=== PATIENT | male | born 1990 ===

== ENCOUNTER 2016-08-23 11:39 | Emergency (ER) | payer SELFPAY ==
--- NOTE | 2016-08-23 13:46 | ED NURSING NOTES ---
Clinical Report - Nurses [facility] [address] [place] [address] 08/23/2016 11:46 Patient: MEGHAN WORTHY TRIAGE Triage time 1155. Acuity: LEVEL 4. Chief Complaint: (tailbone pain). Alert. No acute distress. --12:04 Kelsy Sewell 12:01 08/23/16. BP: 137/81. HR: 97. RR: 16. O2 saturation: 99%. Temp: 97.7 F. Pain level now 5/10. --12:04 Kelsy Sewell. Weight: 90.7 kg. Height/Length: 69 inches. BMI: 29.5. --12:00 Kelsy Sewell. Medications None. --12:02 Kelsy Sewell PriLOSEC Oral. --12:02 Kelsy Sewell. Allergies No Known Drug Allergy. --12:02 Kelsy Sewell. History Arrived by private vehicle. Historian: patient. Accompanied by family. Onset. (2 weeks ago). He has had tingling. History of recent trauma- fall (2 weeks ago). 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 SOCIAL HX: Light tobacco smoker (cigarette)- less than 1/2 a pack per day. --12:04 Kelsy Sewell. PROBLEMS: Gastroesophageal Reflux Disease. --12:02 Kelsy Sewell. Interventions ID band on patient. To treatment room. --12:04 Kelsy Sewell. PHYSICAL ASSESSMENT Ambulatory to room. GENERAL / NEURO / PSYCH: Alert. Oriented X 4. Appears in no acute distress. RESPIRATORY: Respirations not labored. Chest nontender. Breath sounds within normal limits. CVS: Normal heart rate and rhythm. Capillary refill less than 2 seconds. GI / : Abdomen soft and nontender. Bowel sounds within normal limits. EXTREMITIES: Sensation intact in extremities. ROM of extremities within normal limits. BACK: ( tender to tailbone). Normal inspection of the neck and back. ROM of neck and back within normal limits. --12:04 Kelsy Sewell. NURSING PROGRESS NOTES The plan of care for this patient has been created. Reassurance given. Two patient identifiers checked. Call light placed in reach. Bed placed in lowest position. Brakes of bed on. Patient ready for evaluation- chart flagged. --12:05 Kelsy Sewell 12:33 08/23/2016 Hydrocodone-APAP (Hydrocodone-Acetaminophen) PO 5/325 mg Tablets 1 tab given. Allergies verified, confirmed 5 rights and sedative warning given to the patient. --12:33 Kelsy Sewell 12:33 08/23/2016 Toradol (Ketorolac Tromethamine) IM 60 mg given. Given in the right gluteus litzy. Allergies verified and confirmed 5 rights. --12:33 Kelsy Sewell Reassessment after medication administered. He is calm and resting quietly and has had no adverse reaction. Overall patient status is the same- he states feels the same. --14:06 Kelsy Sewell. DISPOSITION / DISCHARGE Departure time: 1405. Condition at departure: unchanged and stable. No learning barriers present. Discharge instructions provided and reviewed with the patient. Reviewed medication(s). Work note given. Patient verbalized understanding. Written instructions provided in Sami. The patient was discharged by the nurse practitioner. He was discharged home and accompanied by spouse and family. He left the Emergency Department ambulatory and via private vehicle. Family member driving. --14:07 Kelsy Sewell 14:06 08/23/16. BP: 134/67. HR: 86. RR: 16. O2 saturation: 100%. Pain level now 5/10. --14:07 Kelsy Sewell. Locked/Released at 08/23/2016 14:07 by Kelsy Sewell,
--- NOTE | 2016-08-23 13:46 | ED NURSING NOTES ---
Clinical Report - Nurses [facility] [address] [place] [address] 08/23/2016 11:46 Patient: MEGHAN WORTHY TRIAGE Triage time 1155. Acuity: LEVEL 4. Chief Complaint: (tailbone pain). Alert. No acute distress. --12:04 Kelsy Sewell 12:01 08/23/16. BP: 137/81. HR: 97. RR: 16. O2 saturation: 99%. Temp: 97.7 F. Pain level now 5/10. --12:04 Kelsy Sewell. Weight: 90.7 kg. Height/Length: 69 inches. BMI: 29.5. --12:00 Kelsy Sewell. Medications None. --12:02 Kelsy Sewell PriLOSEC Oral. --12:02 Kelsy Sewell. Allergies No Known Drug Allergy. --12:02 Kelsy Sewell. History Arrived by private vehicle. Historian: patient. Accompanied by family. Onset. (2 weeks ago). He has had tingling. History of recent trauma- fall (2 weeks ago). 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 SOCIAL HX: Light tobacco smoker (cigarette)- less than 1/2 a pack per day. --12:04 Kelsy Sewell. PROBLEMS: Gastroesophageal Reflux Disease. --12:02 Kelsy Sewell. Interventions ID band on patient. To treatment room. --12:04 Kelsy Sewell. PHYSICAL ASSESSMENT Ambulatory to room. GENERAL / NEURO / PSYCH: Alert. Oriented X 4. Appears in no acute distress. RESPIRATORY: Respirations not labored. Chest nontender. Breath sounds within normal limits. CVS: Normal heart rate and rhythm. Capillary refill less than 2 seconds. GI / : Abdomen soft and nontender. Bowel sounds within normal limits. EXTREMITIES: Sensation intact in extremities. ROM of extremities within normal limits. BACK: ( tender to tailbone). Normal inspection of the neck and back. ROM of neck and back within normal limits. --12:04 Kelsy Sewell. NURSING PROGRESS NOTES The plan of care for this patient has been created. Reassurance given. Two patient identifiers checked. Call light placed in reach. Bed placed in lowest position. Brakes of bed on. Patient ready for evaluation- chart flagged. --12:05 Kelsy Sewell 12:33 08/23/2016 Hydrocodone-APAP (Hydrocodone-Acetaminophen) PO 5/325 mg Tablets 1 tab given. Allergies verified, confirmed 5 rights and sedative warning given to the patient. --12:33 Kelsy Sewell 12:33 08/23/2016 Toradol (Ketorolac Tromethamine) IM 60 mg given. Given in the right gluteus litzy. Allergies verified and confirmed 5 rights. --12:33 Kelsy Sewell Reassessment after medication administered. He is calm and resting quietly and has had no adverse reaction. Overall patient status is the same- he states feels the same. --14:06 Kelsy Sewell. DISPOSITION / DISCHARGE Departure time: 1405. Condition at departure: unchanged and stable. No learning barriers present. Discharge instructions provided and reviewed with the patient. Reviewed medication(s). Work note given. Patient verbalized understanding. Written instructions provided in Serbian. The patient was discharged by the nurse practitioner. He was discharged home and accompanied by spouse and family. He left the Emergency Department ambulatory and via private vehicle. Family member driving. --14:07 Kelsy Sewell 14:06 08/23/16. BP: 134/67. HR: 86. RR: 16. O2 saturation: 100%. Pain level now 5/10. --14:07 Kelsy Sewell. Locked/Released at 08/23/2016 14:07 by Kelsy Sewell,
--- NOTE | 2016-08-23 13:46 | ED CLINICAL REPORT ---
Clinical Report - Physicians/Mid Levels [facility] [address] [place] [address] 08/23/2016 11:46 Patient: MEGHAN WORTHY Time Seen: 1205. Arrived- By private vehicle. Historian- patient. HISTORY OF PRESENT ILLNESS Chief Complaint: tailbone pain. Modifying factors- worsened by sitting. It is described as being severe. The quality is noted to be sharp. No radiation. Onset- 2 weeks ago and it is still present and worsening. It was gradual in onset and has been constant but is not gone now. No bladder dysfunction, bowel dysfunction, sensory loss or motor loss. Additional history - rreports no fever, urinary retention, history of drug use. Patient reports no numbness, [place], weakness. Patient notes the possibility of an injury (feel). Mechanism of injury- he slipped and fell. (fell). (at work outside on ice/snow). Patient denies injury to the head or neck. No other injury. Similar symptoms previously: None. Recent medical care: Not recently seen/assessed. REVIEW OF SYSTEMS No fever or chills. All systems otherwise negative, except as recorded above. PAST HISTORY See nurses notes. SOCIAL HISTORY Never smoker. No alcohol use or drug use. Residence: [place] Is a local resident. ADDITIONAL NOTES The nursing notes have been reviewed. PHYSICAL EXAM Vital Signs: 08/23/2016 12:01 BP: 137/81. HR: 97. RR: 16. O2 saturation: 99%. Temp: 97.7 F. Blood pressure normal. Oxygen saturation normal. Appearance: Alert. No acute distress. HEENT: Normal external inspection. Eyes: Pupils equal, round and reactive to light. ENT: Ears normal. Pharynx normal. Neck: Normal inspection. Neck nontender. Painless ROM. CVS: Heart sounds normal. Pulses normal. Respiratory: No respiratory distress. Breath sounds normal. Abdomen: No visible injury. Soft and nontender. Bowel sounds normal. No mass. Back: Normal inspection. Painless ROM. (mild tenderness at the coccyx. No Bony abnormalities. Overlying skin changes. No masses. Skin is intact. No swelling.). Skin: Skin warm and dry. Normal skin color. No rash. Normal skin turgor. Extremities: Extremities exhibit normal ROM. Extremities nontender. LABS, X-RAYS, AND EKG Sacrum X-ray: No fracture and mass effect. Soft tissues normal. (2 view of the sacrum and coccyx with 1 cone-down view. No osseous maladies.). Views: AP and lateral. Technique: good. The X-rays were independently viewed by me and interpreted contemporaneously by me. Prior films were not available for comparison. PROGRESS AND PROCEDURES Course of Care: the patient is a pleasant 26-year-old male presenting for evaluation of pain into the coccyx. The patient is reports a traumatic event prior to the onset of the pain. No neurovascular compromise noted on examination. No evidence of cauda equina syndrome, or conus medullaris. Patient be managed with pain medication and radiographs of the sacrum/coccyx. Patient ports no other pain or injury at this time. Again patient is neurovascularly intact. Workup does not show any acute abnormalities. Radiograph of the sacrum did not show any acute osseous abnormalities. Patient be treated as a coccyx contusion. Patient be treated conservatively with pain medication and rest. Discussed the patient workup, diagnosis, home care, follow-up, and return precautions. All questions answered. The patient expressed understanding of these instructions and was agreeable to that. Disposition: Discharged. Condition: good. CLINICAL IMPRESSION 08/23/2016 12:01 BP: 137/81. HR: 97. RR: 16. O2 saturation: 99%. Temp: 97.7 F. Blood pressure normal. Oxygen saturation normal. Single contusion. (coccyx). No hematoma or skin abrasion. INSTRUCTIONS Warnings: GENERAL WARNINGS: Return or contact your physician immediately if your condition worsens or changes unexpectedly, if not improving as expected, or if other problems arise. SPECIFICALLY, return if you develop weakness, numbness, tingling, pain or incontinence. fever, redness, or other concerns. Your Current Medications: CONTINUE TAKING THE FOLLOWING MEDICATIONS: None*. PriLOSEC Oral. Prescription Medications: Motrin 600 mg tablets: take 1 tablet orally every 6 hours as needed for pain, stiffness or swelling. Dispense thirty (30). No refill. Substitution is permissible. (take with food) Hydrocodone/APAP 5mg / 325mg: take 1 orally every 6 hours as needed for pain. Dispense fifteen (15). No refill. Follow-up: Return to the emergency department as needed. Follow up with your doctor in three days. Reason for referral: recheck today's concerns. Summary of care provided to patient and family via paper. Screening today revealed the patient's blood pressure to be in the normal range. The patient should follow up with a primary care provider for blood pressure management. Understanding of the discharge instructions verbalized by patient and parent. (Electronically signed by Wade Cooper Dr. 08/27/2016 9:58)
--- NOTE | 2016-08-23 13:47 | ED ORDER SUMMARY ---
..... Patient: MEGHAN WORTHY OrderSheet [facility] VisitID: [id number] [address] [place] [address] 26y, M Registration Date/Time: 08/23/2016 ORDER SHEET Weight: 90.7 kg Allergies: No Known Drug Allergy GENERAL ORDERS: Sacrum and Coccyx Urgent (12:19 08/23/2016 Ryan Whalen) (Ack 12:32 NHouse ER Tech1) (13:18 NHouse ER Tech1) MEDICATION ORDERS: Hydrocodone-APAP PO 5/325 mg (NOW, HIGH ALERT MEDICATION) (12:20 08/23/2016 Ryan Whalen) (12:33 [facility] Toradol IM 60 mg (NOW) (12:20 08/23/2016 Ryan Whalen) (12:33 EBpayton) IV FLUIDS: ORDER SHEET NOTES: [Electronically signed by Kelsy Sewell (14:07 08/23/2016)] [Electronically signed by Wade Cooper Dr. (09:58 08/27/2016)] [Electronically locked/signed by Kelsy Sewell (14:07 08/23/2016)]
--- NOTE | 2016-08-23 13:47 | ED ORDER SUMMARY ---
..... Patient: MEGHAN WORTHY OrderSheet [facility] VisitID: [id number] [address] [place] [address] 26y, M Registration Date/Time: 08/23/2016 ORDER SHEET Weight: 90.7 kg Allergies: No Known Drug Allergy GENERAL ORDERS: Sacrum and Coccyx Urgent (12:19 08/23/2016 Ryan Whalen) (Ack 12:32 NHouse ER Tech1) (13:18 NHouse ER Tech1) MEDICATION ORDERS: Hydrocodone-APAP PO 5/325 mg (NOW, HIGH ALERT MEDICATION) (12:20 08/23/2016 Ryan Whalen) (12:33 [facility] Toradol IM 60 mg (NOW) (12:20 08/23/2016 Ryan Whalen) (12:33 EBpayton) IV FLUIDS: ORDER SHEET NOTES: [Electronically signed by Kelsy Sewell (14:07 08/23/2016)] [Electronically signed by Wade Cooper Dr. (09:58 08/27/2016)] [Electronically locked/signed by Kelsy Sewell (14:07 08/23/2016)]
--- NOTE | 2016-08-23 13:59 | DIAGNOSTIC IMAGING REPORT ---
PROCEDURE: XR SACRUM AND COCCYX INDICATION: TRAUMA/INJURY TECHNIQUE: Three views. COMPARISON: None. FINDINGS: Osseous structures are normal. No evidence of fracture. Soft tissues are unremarkable. IMPRESSION: 1. Normal sacrum and coccyx.
--- NOTE | 2016-08-27 09:58 | ED MED RECONCILIATION SUMMARY ---
Patient: MEGHAN WORTHY Medication Reconciliation Report [facility] VisitID: [id number] [place] [address] 26y, M Registration Date/Time: 08/23/2016 Weight: 90.7 kg Height/Length: 69 in. BMI: 29.5 ALLERGIES: No Known Drug Allergy The patient's Home Medications are listed below: CONTINUE TAKING THE FOLLOWING MEDICATIONS: PriLOSEC Oral The source(s) of the original Home Medication information: Not obtained. The following Medications were given to the patient in the Emergency Department: Hydrocodone-APAP [PO] PO 1 tab, administered: 08/23/2016 12:33:00 PM Toradol [IM] IM 60 mg, administered: 08/23/2016 12:33:00 PM The following Medications were prescribed to the patient: Motrin 600 mg tablets: take 1 tablet orally every 6 hours as needed for pain, stiffness or swelling. Dispense thirty (30). No refill. Substitution is permissible.(take with food) -- Wade Cooper Dr. Hydrocodone/APAP 5mg / 325mg: take 1 orally every 6 hours as needed for pain. Dispense fifteen (15). No refill. -- Wade Cooper Dr.
--- NOTE | 2016-08-27 09:58 | ED MAR SUMMARY ---
..... Medication Administration Record [facility] [address] [place] [address] Patient: MEGHAN WORTHY Visit ID: [id number] 26y, M Weight: 90.7 kg Height/Length: 69 in BMI: 29.5 ALLERGIES: No Known Drug Allergy Given 12:08/23/2016 Kelsy Sewell, Medication Administered: HYDROCODONE-APAP [PO] (HYDROCODONE-ACETAMINOPHEN), Dose: 1 tab 5/325 mg Tablets PO. Medication Ordered: Hydrocodone-APAP PO 5/325 mg (NOW, HIGH ALERT MEDICATION). Given 12:08/23/2016 Kelsy Sewell, Medication Administered: TORADOL [IM] (KETOROLAC TROMETHAMINE), Dose: 60 mg IM. Medication Ordered: Toradol IM 60 mg (NOW).
--- NOTE | 2016-08-27 09:58 | ED MED RECONCILIATION SUMMARY ---
Patient: MEGHAN WORTHY Medication Reconciliation Report [facility] VisitID: [id number] [place] [address] 26y, M Registration Date/Time: 08/23/2016 Weight: 90.7 kg Height/Length: 69 in. BMI: 29.5 ALLERGIES: No Known Drug Allergy The patient's Home Medications are listed below: CONTINUE TAKING THE FOLLOWING MEDICATIONS: PriLOSEC Oral The source(s) of the original Home Medication information: Not obtained. The following Medications were given to the patient in the Emergency Department: Hydrocodone-APAP [PO] PO 1 tab, administered: 08/23/2016 12:33:00 PM Toradol [IM] IM 60 mg, administered: 08/23/2016 12:33:00 PM The following Medications were prescribed to the patient: Motrin 600 mg tablets: take 1 tablet orally every 6 hours as needed for pain, stiffness or swelling. Dispense thirty (30). No refill. Substitution is permissible.(take with food) -- Wade Cooper Dr. Hydrocodone/APAP 5mg / 325mg: take 1 orally every 6 hours as needed for pain. Dispense fifteen (15). No refill. -- Wade Cooper Dr.
--- NOTE | 2016-08-27 09:58 | ED MAR SUMMARY ---
..... Medication Administration Record [facility] With [facility] [address] [place] [address] Patient: MEGHAN WORTHY Visit ID: [id number] 26y, M Weight: 90.7 kg Height/Length: 69 in BMI: 29.5 ALLERGIES: No Known Drug Allergy Given 12:08/23/2016 Kelsy Sewell, Medication Administered: HYDROCODONE-APAP [PO] (HYDROCODONE-ACETAMINOPHEN), Dose: 1 tab 5/325 mg Tablets PO. Medication Ordered: Hydrocodone-APAP PO 5/325 mg (NOW, HIGH ALERT MEDICATION). Given 12:08/23/2016 Kelsy Sewell, Medication Administered: TORADOL [IM] (KETOROLAC TROMETHAMINE), Dose: 60 mg IM. Medication Ordered: Toradol IM 60 mg (NOW).
--- NOTE | 2016-08-27 09:58 | ED DISCHARGE INSTRUCTIONS ---
Patient: MEGHAN WORTHY General Instructions [facility] VisitID: [id number] [place] [address] 26y, M Registration Date/Time: 08/23/2016 08/23/2016 12:01 BP: 137/81. HR: 97. RR: 16. O2 saturation: 99%. Temp: 97.7 F. Blood pressure normal. Oxygen saturation normal. Single contusion. (coccyx). No hematoma or skin abrasion. INSTRUCTIONS Warnings: GENERAL WARNINGS: Return or contact your physician immediately if your condition worsens or changes unexpectedly, if not improving as expected, or if other problems arise. SPECIFICALLY, return if you develop weakness, numbness, tingling, pain or incontinence. fever, redness, or other concerns. Your Current Medications: CONTINUE TAKING THE FOLLOWING MEDICATIONS: None*. PriLOSEC Oral. Prescription Medications: Motrin 600 mg tablets: take 1 tablet orally every 6 hours as needed for pain, stiffness or swelling. Dispense thirty (30). No refill. Substitution is permissible. (take with food) Hydrocodone/APAP 5mg / 325mg: take 1 orally every 6 hours as needed for pain. Dispense fifteen (15). No refill. Follow-up: Return to the emergency department as needed. Follow up with your doctor in three days. Reason for referral: recheck today's concerns. Summary of care provided to patient and family via paper. Screening today revealed the patient's blood pressure to be in the normal range. The patient should follow up with a primary care provider for blood pressure management. Understanding of the discharge instructions verbalized by patient and parent. ADDITIONAL INFORMATION Contusion: Coccyx Or Sacrum You have a CONTUSION of the coccyx or sacrum. The sacrum is the triangular bone at the base of the spine that joins the pelvic bones. The coccyx (tailbone) is the last bone of the sacrum that hangs down in a point like a small tail. A contusion is a bruise with swelling and some bleeding under the skin. You have no broken bones. This injury takes a few days to a few weeks to heal. A crack (fracture) in the coccyx bone causes the same symptoms as a contusion of this bone. Often, x-rays are not taken of this area since the treatment is the same. A fracture of this bone will take about four weeks to heal. Home Care: Try to find a position of comfort. Try lying on your side with your knees bent up towards your chest and a pillow between your knees. Apply an ice pack (crushed or cubed ice in a plastic bag, wrapped in a towel) for 20 minutes every 2-4 hours during the first two days after a new injury. You may use acetaminophen (Tylenol) or ibuprofen (Motrin, Advil) to control pain, unless another pain medicine was prescribed. [ NOTE: If you have chronic liver or kidney disease or ever had a stomach ulcer or GI bleeding, talk with your doctor before using these medicines.] A bruised tailbone causes pain when sitting. You may try using a "donut pillow" which is a foam pillow that has a hole in the center to prevent pressure on the tailbone. You can obtain this at a pharmacy or orthopedic supply store. Follow Up with your doctor or this facility if your symptoms do not start to improve after one week. [NOTE: If X-rays were taken, they will be reviewed by a radiologist. You will be notified of any new findings that may affect your care.] Get Prompt Medical Attention if any of the following occur: Pain becomes worse or spreads to one or both legs Weakness or numbness in one or both legs Loss of bowel or bladder control Numbness in the groin area Redness, warmth or drainage from the skin Ibuprofen Oral tablet What is this medicine? IBUPROFEN (eye BYOO proe fen) is a non-steroidal anti-inflammatory drug (NSAID). It is used for dental pain, fever, headaches or migraines, osteoarthritis, rheumatoid arthritis, or painful monthly periods. It can also relieve minor aches and pains caused by a cold, flu, or sore throat. How should I use this medicine? Take this medicine by mouth with a glass of water. Follow the directions on the prescription label. Take this medicine with food if your stomach gets upset. Try to not lie down for at least 10 minutes after you take the medicine. Take your medicine at regular intervals. Do not take your medicine more often than directed. A special MedGuide will be given to you by the pharmacist with each prescription and refill. Be sure to read this information carefully each time. Talk to your hydroelectric production manager regarding the use of this medicine in children. Special care may be needed. What side effects may I notice from receiving this medicine? Side effects that you should report to your doctor or health transitions rn care coordinator as soon as possible: allergic reactions like skin rash, itching or hives, swelling of the face, lips, or tongue black or bloody stools, blood in the urine or in vomit breathing problems changes in vision chest pain general ill feeling or flu-like symptoms nausea or vomiting redness, blistering, peeling or loosening of the skin, including inside the mouth slurred speech or weakness on one side of the body stomach pain unexplained weight gain or swelling unusually weak or tired yellowing of eyes or skin Side effects that usually do not require medical attention (report to your doctor or health transitions rn care coordinator if they continue or are bothersome): constipation or diarrhea dizziness gas or heartburn stomach upset What may interact with this medicine? Do not take this medicine with any of the following medications: cidofovir ketorolac methotrexate pemetrexed This medicine may also interact with the following medications: alcohol aspirin diuretics lithium other drugs for inflammation like prednisone warfarin What if I miss a dose? If you miss a dose, take it as soon as you can. If it is almost time for your next dose, take only that dose. Do not take double or extra doses. Where should I keep my medicine? Keep out of the reach of children. Store at room temperature between 15 and 30 degrees C (59 and 86 degrees F). Keep container tightly closed. Throw away any unused medicine after the expiration date. What should I tell my health care provider before I take this medicine? They need to know if you have any of these conditions: asthma cigarette smoker drink more than 3 alcohol containing drinks a day heart disease or circulation problems such as heart failure or leg edema (fluid retention) high blood pressure kidney disease liver disease stomach bleeding or ulcers an unusual or allergic reaction to ibuprofen, aspirin, other NSAIDS, other medicines, foods, dyes, or preservatives or trying to get breast-feeding What should I watch for while using this medicine? Tell your doctor or healthcare professional if your symptoms do not start to get better or if they get worse. This medicine does not prevent heart attack or stroke. In fact, this medicine may increase the chance of a heart attack or stroke. The chance may increase with longer use of this medicine and in people who have heart disease. If you take aspirin to prevent heart attack or stroke, talk with your doctor or health transitions rn care coordinator. Do not take other medicines that contain aspirin, ibuprofen, or naproxen with this medicine. Side effects such as stomach upset, nausea, or ulcers may be more likely to occur. Many medicines available without a prescription should not be taken with this medicine. This medicine can cause ulcers and bleeding in the stomach and intestines at any time during treatment. Ulcers and bleeding can happen without warning symptoms and can cause . To reduce your risk, do not smoke cigarettes or drink alcohol while you are taking this medicine. You may get drowsy or dizzy. Do not drive, use machinery, or do anything that needs mental alertness until you know how this medicine affects you. Do not stand or sit up quickly, especially if you are an older patient. This reduces the risk of dizzy or fainting spells. This medicine can cause you to bleed more easily. Try to avoid damage to your teeth and gums when you brush or floss your teeth. Hydrocodone Bitartrate, Acetaminophen Oral tablet What is this medicine? ACETAMINOPHEN; HYDROCODONE (a set a KATARINA larry fen; tatiana droe KOE done) is a pain reliever. It is used to treat mild to moderate pain. How should I use this medicine? Take this medicine by mouth. Swallow it with a full glass of water. Follow the directions on the prescription label. If the medicine upsets your stomach, take the medicine with food or milk. Do not take more than you are told to take. Talk to your hydroelectric production manager regarding the use of this medicine in children. This medicine is not approved for use in children. What side effects may I notice from receiving this medicine? Side effects that you should report to your doctor or health transitions rn care coordinator as soon as possible: allergic reactions like skin rash, itching or hives, swelling of the face, lips, or tongue breathing problems confusion feeling faint or lightheaded, falls stomach pain yellowing of the eyes or skin Side effects that usually do not require medical attention (report to your doctor or health transitions rn care coordinator if they continue or are bothersome): nausea, vomiting stomach upset What may interact with this medicine? alcohol antihistamines isoniazid medicines for depression, anxiety, or psychotic disturbances medicines for sleep muscle relaxants naltrexone narcotic medicines (opiates) for pain phenobarbital ritonavir tramadol What if I miss a dose? If you miss a dose, take it as soon as you can. If it is almost time for your next dose, take only that dose. Do not take double or extra doses. Where should I keep my medicine? Keep out of the reach of children. This medicine can be abused. Keep your medicine in a safe place to protect it from theft. Do not share this medicine with anyone. Selling or giving away this medicine is dangerous and against the law. Store at room temperature between 15 and 30 degrees C (59 and 86 degrees F). Protect from light. Keep container tightly closed. Throw away any unused medicine after the expiration date. Discard unused medicine and used packaging carefully. Pets and children can be harmed if they find used or lost packages. What should I tell my health care provider before I take this medicine? They need to know if you have any of these conditions: brain tumor Crohn's disease, inflammatory bowel disease, or ulcerative colitis drink more than 3 alcohol-containing drinks per day drug abuse or addiction head injury heart or circulation problems kidney disease or problems going to the bathroom liver disease lung disease, asthma, or breathing problems an unusual or allergic reaction to acetaminophen, hydrocodone, other opioid analgesics, other medicines, foods, dyes, or preservatives or trying to get breast-feeding What should I watch for while using this medicine? Tell your doctor or health transitions rn care coordinator if your pain does not go away, if it gets worse, or if you have new or a different type of pain. You may develop tolerance to the medicine. Tolerance means that you will need a higher dose of the medicine for pain relief. Tolerance is normal and is expected if you take the medicine for a long time. Do not suddenly stop taking your medicine because you may develop a severe reaction. Your body becomes used to the medicine. This does NOT mean you are addicted. Addiction is a behavior related to getting and using a drug for a non-medical reason. If you have pain, you have a medical reason to take pain medicine. Your doctor will tell you how much medicine to take. If your doctor wants you to stop the medicine, the dose will be slowly lowered over time to avoid any side effects. You may get drowsy or dizzy when you first start taking the medicine or change doses. Do not drive, use machinery, or do anything that may be dangerous until you know how the medicine affects you. Stand or sit up slowly. There are different types of narcotic medicines (opiates) for pain. If you take more than one type at the same time, you may have more side effects. Give your health care provider a list of all medicines you use. Your doctor will tell you how much medicine to take. Do not take more medicine than directed. Call emergency for help if you have problems breathing. The medicine will cause constipation. Try to have a bowel movement at least every 2 to 3 days. If you do not have a bowel movement for 3 days, call your doctor or health transitions rn care coordinator. Too much acetaminophen can be very dangerous. Do not take Tylenol (acetaminophen) or medicines that contain acetaminophen with this medicine. Many non-prescription medicines contain acetaminophen. Always read the labels carefully. You have been given the following additional information: Contusion, Coccyx/Sacrum Ibuprofen Oral tablet Hydrocodone Bitartrate, Acetaminophen Oral tablet (Electronically signed by Wade Cooper Dr. 08/27/2016 9:58)
== END 2016-08-23 14:05 | disposition home or self-care (01) ==
LOC: ED SRH 11:39
DX: S30.0XXA Contusion of lower back and pelvis, initial encounter (principal); W00.0XXA Fall on same level due to ice and snow, initial encounter; Y93.9 Activity, unspecified; Y99.0 Civilian activity done for income or pay; Y92.89 Other specified places as the place of occurrence of the external cause

== ENCOUNTER 2016-08-26 09:45 | Emergency (ER) | payer SELFPAY ==
--- NOTE | 2016-08-26 13:37 | ED ORDER SUMMARY ---
..... Patient: MEGHAN WORTHY OrderSheet [facility] VisitID: [id number] [address] [place] [address] 26y, M Registration Date/Time: 08/26/2016 ORDER SHEET Weight: 90.7 kg (stated) Allergies: No Known Drug Allergy GENERAL ORDERS: Culture, Wound Deep (Buttock) (pilonidal abcess) Urgent (13:35 08/26/2016 Juan MACHADO) (13:37 ALawrence ER Tech1) MEDICATION ORDERS: Dilaudid IM 2 mg (HIGH ALERT MEDICATION, NOW) (13:39 08/26/2016 Srini Law verbal order read back to Juan MACHADO) (13:40 Srini R.N.) Zofran ODT PO 4 mg (NOW) (13:40 08/26/2016 Srini Law verbal order read back to Juan MACHADO) (13:41 Srini R.N.) IV FLUIDS: ORDER SHEET NOTES: [Electronically signed by Colleen Fenton R.N. (14:17 08/26/2016)] [Electronically signed by Khris Stallings MD (22:29 08/28/2016)] [Electronically locked/signed by Colleen Fenton R.N. (14:17 08/26/2016)]
--- NOTE | 2016-08-26 13:37 | ED CLINICAL REPORT ---
Clinical Report - Physicians/Mid Levels Located [facility] [address] [place] [address] 08/26/2016 9:47 Patient: MEGHAN WORTHY Time Seen: 10:58. Arrived- By private vehicle. Historian- patient. HISTORY OF PRESENT ILLNESS Chief Complaint: TENDER AREA. This started about 4 days ago and is still present. It was gradual in onset and has been constant. It is described as painful. It has been located in the pilonidal (coccyx) area. A possible cause has been identified (he slipped on the ice at work and fell hitting his tailbone a couple of weeks ago). Recent medical care: The patient was seen recently at this facility. Seen for similar symptoms. Diagnosis: (Single contusion. (coccyx)). REVIEW OF SYSTEMS No chills, fever, sweats, calf pain or chest pain. No cough, difficulty breathing, pedal edema, palpitations or abdominal pain. No constipation, diarrhea, nausea, vomiting or urinary problems. All systems otherwise negative, except as recorded above. SOCIAL HISTORY Current every day heavy tobacco smoker (cigarette)- less than 1 pack per day. No alcohol use or drug use. ADDITIONAL NOTES The nursing notes have been reviewed. PHYSICAL EXAM Vital Signs: 08/26/2016 09:52 BP: 137/101. HR: 117. RR: 18. O2 saturation: 98%. Temp: 97.7 F. Pain level now: 1010. Have been reviewed. Appearance: Alert. Eyes: Pupils equal, round and reactive to light. ENT: Pharynx normal. Neck: Neck supple. CVS: Normal heart rate and rhythm. Heart sounds normal. Respiratory: Breath sounds normal. Abdomen: Nontender. No organomegaly. Skin: Medium abscess with fluctuance and cellulitis to the pilonidal area. Extremities: Normal external inspection. Neuro: No motor deficit. No sensory deficit. PROGRESS AND PROCEDURES Incision & Drainage of Abscess: Time-out completed immediately before the procedure. The abscess is located in the pilonidal area. The risks of the procedure, benefits and alternatives were explained. Consent was obtained. Local anesthesia provided using 2% lidocaine no epi. Skin cleansed with Betadine. The abscess was incised with a #11 surgical blade. A moderate amount of pus was drained. Cavity was irrigated with saline and packed with gauze. Sample obtained for cultures. A dressing was applied. Course of Care: Patient is stable. Patient/family counseled. Old medical records ordered. Disposition: Discharged. Condition: stable. CLINICAL IMPRESSION Single deep abscess to the pilonidal region with incision and drainage. INSTRUCTIONS No driving or operating machinery while taking medication. Sedative medication was given during your visit. Warnings: Further evaluation is necessary. GENERAL WARNINGS: Return or contact your physician immediately if your condition worsens or changes unexpectedly, if not improving as expected, or if other problems arise. Prescription Medications: Hydrocodone/APAP 5mg/325mg: take 1 to 2 orally every 6 hours as needed for pain. Dispense fifteen (15). No refills. Bactrim DS 800 mg / 160 mg: take 1 tablet orally every 12 hours for 10 days. No refill. Substitution is permissible. Follow-up: Return to the emergency department tomorrow for wound check and packing removal. Understanding of the discharge instructions verbalized by patient. Follow-up with: [facility], , , [address], , [place], [address] Follow up Monday in three days. Call for an appointment. (Electronically signed by Khris Stallings MD 08/28/2016 22:29)
--- NOTE | 2016-08-26 13:37 | ED CLINICAL REPORT ---
Clinical Report - Physicians/Mid Levels [facility] [address] [place] [address] 08/26/2016 9:47 Patient: MEGHAN WROTHY Time Seen: 10:58. Arrived- By private vehicle. Historian- patient. HISTORY OF PRESENT ILLNESS Chief Complaint: TENDER AREA. This started about 4 days ago and is still present. It was gradual in onset and has been constant. It is described as painful. It has been located in the pilonidal (coccyx) area. A possible cause has been identified (he slipped on the ice at work and fell hitting his tailbone a couple of weeks ago). Recent medical care: The patient was seen recently at this facility. Seen for similar symptoms. Diagnosis: (Single contusion. (coccyx)). REVIEW OF SYSTEMS No chills, fever, sweats, calf pain or chest pain. No cough, difficulty breathing, pedal edema, palpitations or abdominal pain. No constipation, diarrhea, nausea, vomiting or urinary problems. All systems otherwise negative, except as recorded above. SOCIAL HISTORY Current every day heavy tobacco smoker (cigarette)- less than 1 pack per day. No alcohol use or drug use. ADDITIONAL NOTES The nursing notes have been reviewed. PHYSICAL EXAM Vital Signs: 08/26/2016 09:52 BP: 137/101. HR: 117. RR: 18. O2 saturation: 98%. Temp: 97.7 F. Pain level now: 1010. Have been reviewed. Appearance: Alert. Eyes: Pupils equal, round and reactive to light. ENT: Pharynx normal. Neck: Neck supple. CVS: Normal heart rate and rhythm. Heart sounds normal. Respiratory: Breath sounds normal. Abdomen: Nontender. No organomegaly. Skin: Medium abscess with fluctuance and cellulitis to the pilonidal area. Extremities: Normal external inspection. Neuro: No motor deficit. No sensory deficit. PROGRESS AND PROCEDURES Incision & Drainage of Abscess: Time-out completed immediately before the procedure. The abscess is located in the pilonidal area. The risks of the procedure, benefits and alternatives were explained. Consent was obtained. Local anesthesia provided using 2% lidocaine no epi. Skin cleansed with Betadine. The abscess was incised with a #11 surgical blade. A moderate amount of pus was drained. Cavity was irrigated with saline and packed with gauze. Sample obtained for cultures. A dressing was applied. Course of Care: Patient is stable. Patient/family counseled. Old medical records ordered. Disposition: Discharged. Condition: stable. CLINICAL IMPRESSION Single deep abscess to the pilonidal region with incision and drainage. INSTRUCTIONS No driving or operating machinery while taking medication. Sedative medication was given during your visit. Warnings: Further evaluation is necessary. GENERAL WARNINGS: Return or contact your physician immediately if your condition worsens or changes unexpectedly, if not improving as expected, or if other problems arise. Prescription Medications: Hydrocodone/APAP 5mg/325mg: take 1 to 2 orally every 6 hours as needed for pain. Dispense fifteen (15). No refills. Bactrim DS 800 mg / 160 mg: take 1 tablet orally every 12 hours for 10 days. No refill. Substitution is permissible. Follow-up: Return to the emergency department tomorrow for wound check and packing removal. Understanding of the discharge instructions verbalized by patient. Follow-up with: [facility], , , [address], , [place], [address] Follow up Monday in three days. Call for an appointment. (Electronically signed by Khris Stallings MD 08/28/2016 22:29)
--- NOTE | 2016-08-26 13:37 | ED NURSING NOTES ---
Clinical Report - Nurses [facility] [address] [place] [address] 08/26/2016 9:47 Patient: MEGHAN WORTHY TRIAGE Triage time 09:52. Acuity: LEVEL 4. Chief Complaint: BACK PAIN. Alert. [place] COMA SCORE: [place] Coma Scale: 15- eyes open spontaneously (4); best verbal response- oriented x 4 (5); best motor response- obeys commands (6). --09:56 Colleen Fenton R.N. 09:52 08/26/16. BP: 137/101. HR: 117. RR: 18. O2 saturation: 98% on room air. Temp: 97.7 F. Pain level now: 04/18. --09:56 Colleen Fenton R.N. Weight: 90.7 kg stated. Height/Length: 69 inches Per Patient. BMI: 29.5. --09:53 Colleen Fenton R.N. Medications PriLOSEC Oral. --09:53 Colleen Fenton R.N. Motrin Oral (from previous ED visit). Vicodin Oral (from previous ED visit). --11:24 Colleen Fenton R.N. Medication/allergy information source: the patient. --09:56 Colleen Fenton R.N. Allergies No Known Drug Allergy. --09:53 Colleen Fenton R.N. History Arrived by private vehicle. Historian: patient. Unaccompanied. Primary physician (none). Describes the quality as a sharp pain. Relates the location as in the sacrum/coccyx region. ( seen here for initial injury). History of recent trauma- (fell a few weeks ago). SOCIAL HX: Heavy tobacco smoker- less than 1 pack per day. No alcohol use or drug use. FALL RISK ASSESSMENT: Fall risk assessment completed. No fall risk identified. FUNCTIONAL ASSESSMENT: Functional assessment: no impairments noted. LEARNING NEEDS ASSESSMENT: The learning needs assessment revealed no barriers. --09:56 Colleen Fenton R.N. PROBLEMS: Contusion. Gastroesophageal Reflux Disease. --09:53 Colleen Fenton R.N. ADDITIONAL SURGERIES: no known surgeries. Assessment GENERAL / NEURO / PSYCH: The patient is awake and alert, is oriented and cooperative and appears uncomfortable. He has good eye contact. RESPIRATORY: Respirations not labored. SKIN: Skin is warm and dry. --09:56 Colleen Fenton R.N. Interventions ID band on patient. To treatment room. --09:56 Colleen Fenton R.N. PHYSICAL ASSESSMENT 10:00 08/26/16. Ambulatory to room. Patient gowned. GENERAL / NEURO / PSYCH: The patient is awake and alert, is oriented and cooperative and appears uncomfortable. He has good eye contact. RESPIRATORY: Respirations not labored. --10:00 Colleen Fenton R.N. NURSING PROGRESS NOTES 09:59 pt prefers to stand because of the pain. Patient gowned. --10:00 Colleen Fenton R.N. 11:27 08/26/16. The patient is resting quietly. Overall patient status is the same- he states feels the same. GENERAL / NEURO / PSYCH: Alert. Oriented X 4. RESPIRATORY: No respiratory distress. SKIN: Skin is warm and dry. --11:27 Colleen eFnton R.N. 13:35 08/26/2016 Dilaudid (HYDROmorphone HCl PF) IM 2 mg given. Given in the left gluteus litzy. Allergies verified, confirmed 5 rights and sedative warning given to the patient. --13:40 Colleen Fenton R.N. 13:36 08/26/2016 Zofran ODT (Ondansetron) PO Oral Disintegrating Tablets 4 mg given. Allergies verified and confirmed 5 rights. --13:41 Colleen Fenton R.N. I&D done by ERMD. --14:15 Colleen Fenton R.N. cleaned and dressed by EDT. --14:15 Colleen Fenton R.N. 13:55. Reassessment after procedure and medication administered. He is calm. Overall patient status is the same- he states feels the same. GENERAL / NEURO / PSYCH: Alert. Oriented X 4. RESPIRATORY: No respiratory distress. Breath sounds normal. SKIN: Skin is warm and dry. --14:16 Colleen Fenton R.N. DISPOSITION / DISCHARGE Departure time: 1355. Condition at departure: stable. No learning barriers present. Discharge instructions provided and reviewed with the patient. Reviewed medication(s). Prescription(s) given to the patient. Patient verbalized understanding. Written instructions provided in [place]. The patient was discharged home and accompanied by being picked up. He left the Emergency Department ambulatory. FALL RISK ASSESSMENT: Fall risk assessment completed. No fall risk identified. --14:15 Colleen Fenton R.N. 13:55 08/26/16. BP: 134/71. HR: 103. RR: 18. O2 saturation: 95% on room air. Pain level now: 04/18. --14:15 Colleen Fenton R.N. Locked/Released at 08/26/2016 14:17 by Colleen Fenton R.N.
--- NOTE | 2016-08-26 13:37 | ED NURSING NOTES ---
Clinical Report - Nurses [facility] [address] [place] [address] 08/26/2016 9:47 Patient: MEGHAN WORTHY TRIAGE Triage time 09:52. Acuity: LEVEL 4. Chief Complaint: BACK PAIN. Alert. [place] COMA SCORE: [place] Coma Scale: 15- eyes open spontaneously (4); best verbal response- oriented x 4 (5); best motor response- obeys commands (6). --09:56 Colleen Fenton R.N. 09:52 08/26/16. BP: 137/101. HR: 117. RR: 18. O2 saturation: 98% on room air. Temp: 97.7 F. Pain level now: 04/18. --09:56 Colleen Fenton R.N. Weight: 90.7 kg stated. Height/Length: 69 inches Per Patient. BMI: 29.5. --09:53 Colleen Fenton R.N. Medications PriLOSEC Oral. --09:53 Colleen Fenton R.N. Motrin Oral (from previous ED visit). Vicodin Oral (from previous ED visit). --11:24 Colleen Fenton R.N. Medication/allergy information source: the patient. --09:56 Colleen Fenton R.N. Allergies No Known Drug Allergy. --09:53 Colleen Fenton R.N. History Arrived by private vehicle. Historian: patient. Unaccompanied. Primary physician (none). Describes the quality as a sharp pain. Relates the location as in the sacrum/coccyx region. ( seen here for initial injury). History of recent trauma- (fell a few weeks ago). SOCIAL HX: Heavy tobacco smoker- less than 1 pack per day. No alcohol use or drug use. FALL RISK ASSESSMENT: Fall risk assessment completed. No fall risk identified. FUNCTIONAL ASSESSMENT: Functional assessment: no impairments noted. LEARNING NEEDS ASSESSMENT: The learning needs assessment revealed no barriers. --09:56 Colleen Fenton R.N. PROBLEMS: Contusion. Gastroesophageal Reflux Disease. --09:53 Colleen Fenton R.N. ADDITIONAL SURGERIES: no known surgeries. Assessment GENERAL / NEURO / PSYCH: The patient is awake and alert, is oriented and cooperative and appears uncomfortable. He has good eye contact. RESPIRATORY: Respirations not labored. SKIN: Skin is warm and dry. --09:56 Colleen Fenton R.N. Interventions ID band on patient. To treatment room. --09:56 Colleen Fenton R.N. PHYSICAL ASSESSMENT 10:00 08/26/16. Ambulatory to room. Patient gowned. GENERAL / NEURO / PSYCH: The patient is awake and alert, is oriented and cooperative and appears uncomfortable. He has good eye contact. RESPIRATORY: Respirations not labored. --10:00 Colleen Fenton R.N. NURSING PROGRESS NOTES 09:59 pt prefers to stand because of the pain. Patient gowned. --10:00 Colleen Fenton R.N. 11:27 08/26/16. The patient is resting quietly. Overall patient status is the same- he states feels the same. GENERAL / NEURO / PSYCH: Alert. Oriented X 4. RESPIRATORY: No respiratory distress. SKIN: Skin is warm and dry. --11:27 Colleen Fenton R.N. 13:35 08/26/2016 Dilaudid (HYDROmorphone HCl PF) IM 2 mg given. Given in the left gluteus litzy. Allergies verified, confirmed 5 rights and sedative warning given to the patient. --13:40 Colleen Fenton R.N. 13:36 08/26/2016 Zofran ODT (Ondansetron) PO Oral Disintegrating Tablets 4 mg given. Allergies verified and confirmed 5 rights. --13:41 Colleen Fenton R.N. I&D done by ERMD. --14:15 Colleen Fenton R.N. cleaned and dressed by EDT. --14:15 Colleen Fenton R.N. 13:55. Reassessment after procedure and medication administered. He is calm. Overall patient status is the same- he states feels the same. GENERAL / NEURO / PSYCH: Alert. Oriented X 4. RESPIRATORY: No respiratory distress. Breath sounds normal. SKIN: Skin is warm and dry. --14:16 Colleen Fenton R.N. DISPOSITION / DISCHARGE Departure time: 1355. Condition at departure: stable. No learning barriers present. Discharge instructions provided and reviewed with the patient. Reviewed medication(s). Prescription(s) given to the patient. Patient verbalized understanding. Written instructions provided in [place]. The patient was discharged home and accompanied by being picked up. He left the Emergency Department ambulatory. FALL RISK ASSESSMENT: Fall risk assessment completed. No fall risk identified. --14:15 Colleen Fenton R.N. 13:55 08/26/16. BP: 134/71. HR: 103. RR: 18. O2 saturation: 95% on room air. Pain level now: 04/18. --14:15 Colleen Fenton R.N. Locked/Released at 08/26/2016 14:17 by Colleen Fenton R.N.
--- NOTE | 2016-08-26 13:37 | ED ORDER SUMMARY ---
..... Patient: MEGHAN WORTHY OrderSheet [facility] VisitID: [id number] [address] [place] [address] 26y, M Registration Date/Time: 08/26/2016 ORDER SHEET Weight: 90.7 kg (stated) Allergies: No Known Drug Allergy GENERAL ORDERS: Culture, Wound Deep (Buttock) (pilonidal abcess) Urgent (13:35 08/26/2016 Juan MACHADO) (13:37 ALawrence ER Tech1) MEDICATION ORDERS: Dilaudid IM 2 mg (HIGH ALERT MEDICATION, NOW) (13:39 08/26/2016 Srini Law verbal order read back to Juan MACHADO) (13:40 Srini R.N.) Zofran ODT PO 4 mg (NOW) (13:40 08/26/2016 Srini Law verbal order read back to Juan MACHADO) (13:41 Srini R.N.) IV FLUIDS: ORDER SHEET NOTES: [Electronically signed by Colleen Fenton R.N. (14:17 08/26/2016)] [Electronically signed by Khris Stallings MD (22:29 08/28/2016)] [Electronically locked/signed by Colleen Fenton R.N. (14:17 08/26/2016)]
--- NOTE | 2016-08-28 22:30 | ED DISCHARGE INSTRUCTIONS ---
Patient: MEGHAN WORTHY General Instructions [facility] VisitID: [id number] [address] [place] [address] 26y, M Registration Date/Time: 08/26/2016 Single deep abscess to the pilonidal region with incision and drainage. INSTRUCTIONS No driving or operating machinery while taking medication. Sedative medication was given during your visit. Warnings: Further evaluation is necessary. GENERAL WARNINGS: Return or contact your physician immediately if your condition worsens or changes unexpectedly, if not improving as expected, or if other problems arise. Prescription Medications: Hydrocodone/APAP 5mg/325mg: take 1 to 2 orally every 6 hours as needed for pain. Dispense fifteen (15). No refills. Bactrim DS 800 mg / 160 mg: take 1 tablet orally every 12 hours for 10 days. No refill. Substitution is permissible. Follow-up: Return to the emergency department tomorrow for wound check and packing removal. Understanding of the discharge instructions verbalized by patient. Follow-up with: [facility], , , [address], , [place], [address] Follow up Monday in three days. Call for an appointment. ADDITIONAL INFORMATION Abscess [Incision & Drainage] An abscess (sometimes called a boil) occurs when bacteria get trapped under the skin and begin to grow. Pus forms inside the abscess as the body responds to the bacteria. An abscess can occur with an insect bite, ingrown hair, blocked oil gland, pimple, cyst, or puncture wound. Treatment of your abscess has required an incision to drain the pus. If the abscess pocket was large, a gauze packing may have been inserted. This will need to be removed and possibly replaced on your next visit. Antibiotics are not required in the treatment of a simple abscess, unless the infection is spreading into the skin around the wound (known as cellulitis). Healing of the wound will take about one to two weeks depending on the size of the abscess. Healthy tissue will grow from the bottom and sides of the opening until it seals over. Home Care: The wound may drain for the first two days. Cover the wound with a clean dry dressing. If the dressing becomes soaked with blood or pus, change it. If a gauze packing was placed inside the abscess cavity, you may be advised to remove it yourself. You may do this in the shower. Once the packing is removed, you should wash the area in the shower or bath 3 to 4 times a day, until the skin opening has closed. If you were prescribed antibiotics, take them as directed until they are all gone. You may use acetaminophen (Tylenol) or ibuprofen (Motrin, Advil) to control pain, unless another pain medicine was prescribed. [ NOTE: If you have liver disease or ever had a stomach ulcer, talk with your doctor before using these medicines.] Follow Up with your doctor as advised by our staff. If a gauze packing was inserted in your wound, it should be removed in 1-2 days. Check your wound every day for the signs of worsening infection listed below. Get Prompt Medical Attention if any of the following occur: Increasing redness or swelling Red streaks in the skin leading away from the wound Increasing local pain or swelling Continued pus draining from the wound two days after treatment Fever of 100.4F (38C) or higher, or as directed by your healthcare provider Hydrocodone Bitartrate, Acetaminophen Oral tablet What is this medicine? ACETAMINOPHEN; HYDROCODONE (a set a KATARINA larry fen; tatiana droe KOE done) is a pain reliever. It is used to treat mild to moderate pain. How should I use this medicine? Take this medicine by mouth. Swallow it with a full glass of water. Follow the directions on the prescription label. If the medicine upsets your stomach, take the medicine with food or milk. Do not take more than you are told to take. Talk to your dock builder regarding the use of this medicine in children. This medicine is not approved for use in children. What side effects may I notice from receiving this medicine? Side effects that you should report to your doctor or health home care scheduler as soon as possible: allergic reactions like skin rash, itching or hives, swelling of the face, lips, or tongue breathing problems confusion feeling faint or lightheaded, falls stomach pain yellowing of the eyes or skin Side effects that usually do not require medical attention (report to your doctor or health home care scheduler if they continue or are bothersome): nausea, vomiting stomach upset What may interact with this medicine? alcohol antihistamines isoniazid medicines for depression, anxiety, or psychotic disturbances medicines for sleep muscle relaxants naltrexone narcotic medicines (opiates) for pain phenobarbital ritonavir tramadol What if I miss a dose? If you miss a dose, take it as soon as you can. If it is almost time for your next dose, take only that dose. Do not take double or extra doses. Where should I keep my medicine? Keep out of the reach of children. This medicine can be abused. Keep your medicine in a safe place to protect it from theft. Do not share this medicine with anyone. Selling or giving away this medicine is dangerous and against the law. Store at room temperature between 15 and 30 degrees C (59 and 86 degrees F). Protect from light. Keep container tightly closed. Throw away any unused medicine after the expiration date. Discard unused medicine and used packaging carefully. Pets and children can be harmed if they find used or lost packages. What should I tell my health care provider before I take this medicine? They need to know if you have any of these conditions: brain tumor Crohn's disease, inflammatory bowel disease, or ulcerative colitis drink more than 3 alcohol-containing drinks per day drug abuse or addiction head injury heart or circulation problems kidney disease or problems going to the bathroom liver disease lung disease, asthma, or breathing problems an unusual or allergic reaction to acetaminophen, hydrocodone, other opioid analgesics, other medicines, foods, dyes, or preservatives or trying to get breast-feeding What should I watch for while using this medicine? Tell your doctor or health home care scheduler if your pain does not go away, if it gets worse, or if you have new or a different type of pain. You may develop tolerance to the medicine. Tolerance means that you will need a higher dose of the medicine for pain relief. Tolerance is normal and is expected if you take the medicine for a long time. Do not suddenly stop taking your medicine because you may develop a severe reaction. Your body becomes used to the medicine. This does NOT mean you are addicted. Addiction is a behavior related to getting and using a drug for a non-medical reason. If you have pain, you have a medical reason to take pain medicine. Your doctor will tell you how much medicine to take. If your doctor wants you to stop the medicine, the dose will be slowly lowered over time to avoid any side effects. You may get drowsy or dizzy when you first start taking the medicine or change doses. Do not drive, use machinery, or do anything that may be dangerous until you know how the medicine affects you. Stand or sit up slowly. There are different types of narcotic medicines (opiates) for pain. If you take more than one type at the same time, you may have more side effects. Give your health care provider a list of all medicines you use. Your doctor will tell you how much medicine to take. Do not take more medicine than directed. Call emergency for help if you have problems breathing. The medicine will cause constipation. Try to have a bowel movement at least every 2 to 3 days. If you do not have a bowel movement for 3 days, call your doctor or health home care scheduler. Too much acetaminophen can be very dangerous. Do not take Tylenol (acetaminophen) or medicines that contain acetaminophen with this medicine. Many non-prescription medicines contain acetaminophen. Always read the labels carefully. Sulfamethoxazole, Trimethoprim Oral tablet What is this medicine? SULFAMETHOXAZOLE; TRIMETHOPRIM or SMX-TMP (suhl fuh meth OK karla zohl; trye METH oh prim) is a combination of a sulfonamide antibiotic and a second antibiotic, trimethoprim. It is used to treat or prevent certain kinds of bacterial infections. It will not work for colds, flu, or other viral infections. How should I use this medicine? Take this medicine by mouth with a full glass of water. Follow the directions on the prescription label. Take your medicine at regular intervals. Do not take it more often than directed. Do not skip doses or stop your medicine early. Talk to your dock builder regarding the use of this medicine in children. Special care may be needed. This medicine has been used in children as young as 2 months of age. What side effects may I notice from receiving this medicine? Side effects that you should report to your doctor or health home care scheduler as soon as possible: allergic reactions like skin rash or hives, swelling of the face, lips, or tongue breathing problems fever or chills, sore throat irregular heartbeat, chest pain joint or muscle pain pain or difficulty passing urine red pinpoint spots on skin redness, blistering, peeling or loosening of the skin, including inside the mouth unusual bleeding or bruising unusually weak or tired yellowing of the eyes or skin Side effects that usually do not require medical attention (report to your doctor or health home care scheduler if they continue or are bothersome): diarrhea dizziness headache loss of appetite nausea, vomiting nervousness What may interact with this medicine? Do not take this medicine with any of the following medications: aminobenzoate potassium dofetilide metronidazole This medicine may also interact with the following medications: ERIN inhibitors like benazepril, enalapril, lisinopril, and ramipril cyclosporine digoxin diuretics indomethacin medicines for diabetes methenamine methotrexate phenytoin potassium supplements pyrimethamine sulfinpyrazone tricyclic antidepressants warfarin What if I miss a dose? If you miss a dose, take it as soon as you can. If it is almost time for your next dose, take only that dose. Do not take double or extra doses. Where should I keep my medicine? Keep out of the reach of children. Store at room temperature between 20 to 25 degrees C (68 to 77 degrees F). Protect from light. Throw away any unused medicine after the expiration date. What should I tell my health care provider before I take this medicine? They need to know if you have any of these conditions: anemia asthma being treated with anticonvulsants if you frequently drink alcohol containing drinks kidney disease liver disease low level of folic acid or [id number] dehydrogenase poor nutrition or malabsorption porphyria severe allergies thyroid disorder an unusual or allergic reaction to sulfamethoxazole, trimethoprim, sulfa drugs, other medicines, foods, dyes, or preservatives or trying to get breast-feeding What should I watch for while using this medicine? Tell your doctor or health home care scheduler if your symptoms do not improve. Drink several glasses of water a day to reduce the risk of kidney problems. Do not treat diarrhea with over the counter products. Contact your doctor if you have diarrhea that lasts more than 2 days or if it is severe and watery. This medicine can make you more sensitive to the sun. Keep out of the sun. If you cannot avoid being in the sun, wear protective clothing and use a sunscreen. Do not use sun lamps or tanning beds/booths. You have been given the following additional information: Abscess, Incision And Drainage Hydrocodone Bitartrate, Acetaminophen Oral tablet Sulfamethoxazole, Trimethoprim Oral tablet No driving or operating machinery while taking medication. Sedative medication was given during your visit. (Electronically signed by Khris Stallings MD 08/28/2016 22:29)
--- NOTE | 2016-08-28 22:30 | ED MED RECONCILIATION SUMMARY ---
Patient: MEGHAN WORTHY Medication Reconciliation Report [facility] VisitID: [id number] [address] [place] [address] 26y, M Registration Date/Time: 08/26/2016 Weight: 90.7 kg Height/Length: 69 in. BMI: 29.5 ALLERGIES: No Known Drug Allergy The patient's Home Medications are listed below: THE FOLLOWING MEDICATIONS NEED TO BE RECONCILED: Motrin Oral, from previous ED visit PriLOSEC Oral Vicodin Oral, from previous ED visit The source(s) of the original Home Medication information: patient The following Medications were given to the patient in the Emergency Department: Dilaudid [IM] IM 2 mg, administered: 08/26/2016 1:35:00 PM Zofran ODT [PO] PO 4 mg, administered: 08/26/2016 1:36:00 PM The following Medications were prescribed to the patient: Hydrocodone/APAP 5mg/325mg: take 1 to 2 orally every 6 hours as needed for pain. Dispense fifteen (15). No refills. -- Khris Stallings MD Bactrim DS 800 mg / 160 mg: take 1 tablet orally every 12 hours for 10 days. No refill. Substitution is permissible. -- Khris Stallings MD
--- NOTE | 2016-08-28 22:30 | ED MED RECONCILIATION SUMMARY ---
Patient: MEGHAN WORTHY Medication Reconciliation Report [facility] VisitID: [id number] [address] [place] [address] 26y, M Registration Date/Time: 08/26/2016 Weight: 90.7 kg Height/Length: 69 in. BMI: 29.5 ALLERGIES: No Known Drug Allergy The patient's Home Medications are listed below: THE FOLLOWING MEDICATIONS NEED TO BE RECONCILED: Motrin Oral, from previous ED visit PriLOSEC Oral Vicodin Oral, from previous ED visit The source(s) of the original Home Medication information: patient The following Medications were given to the patient in the Emergency Department: Dilaudid [IM] IM 2 mg, administered: 08/26/2016 1:35:00 PM Zofran ODT [PO] PO 4 mg, administered: 08/26/2016 1:36:00 PM The following Medications were prescribed to the patient: Hydrocodone/APAP 5mg/325mg: take 1 to 2 orally every 6 hours as needed for pain. Dispense fifteen (15). No refills. -- Khris Stallings MD Bactrim DS 800 mg / 160 mg: take 1 tablet orally every 12 hours for 10 days. No refill. Substitution is permissible. -- Khris Stallings MD
--- NOTE | 2016-08-28 22:30 | ED MAR SUMMARY ---
..... Medication Administration Record [facility] [address] [place] [address] Patient: MEGHAN WORTHY Visit ID: [id number] 26y, M Weight: 90.7 kg Height/Length: 69 in BMI: 29.5 ALLERGIES: No Known Drug Allergy Given 13:35 08/26/2016 Colleen Fenton, RYasmineN. Medication Administered: DILAUDID [IM] (HYDROMORPHONE HCL PF), Dose: 2 mg IM. Medication Ordered: Dilaudid IM 2 mg (HIGH ALERT MEDICATION, NOW). Given 13:36 08/26/2016 Colleen Fenton, R.N. Medication Administered: ZOFRAN ODT [PO] (ONDANSETRON), Dose: 4 mg Oral Disintegrating Tablets PO. Medication Ordered: Zofran ODT PO 4 mg (NOW).
--- NOTE | 2016-08-28 22:30 | ED DISCHARGE INSTRUCTIONS ---
Patient: MEGHAN WORTHY General Instructions [facility] VisitID: [id number] [address] [place] [address] 26y, M Registration Date/Time: 08/26/2016 Single deep abscess to the pilonidal region with incision and drainage. INSTRUCTIONS No driving or operating machinery while taking medication. Sedative medication was given during your visit. Warnings: Further evaluation is necessary. GENERAL WARNINGS: Return or contact your physician immediately if your condition worsens or changes unexpectedly, if not improving as expected, or if other problems arise. Prescription Medications: Hydrocodone/APAP 5mg/325mg: take 1 to 2 orally every 6 hours as needed for pain. Dispense fifteen (15). No refills. Bactrim DS 800 mg / 160 mg: take 1 tablet orally every 12 hours for 10 days. No refill. Substitution is permissible. Follow-up: Return to the emergency department tomorrow for wound check and packing removal. Understanding of the discharge instructions verbalized by patient. Follow-up with: [facility], , , [address], , [place], [id number] Follow up Monday in three days. Call for an appointment. ADDITIONAL INFORMATION Abscess [Incision & Drainage] An abscess (sometimes called a boil) occurs when bacteria get trapped under the skin and begin to grow. Pus forms inside the abscess as the body responds to the bacteria. An abscess can occur with an insect bite, ingrown hair, blocked oil gland, pimple, cyst, or puncture wound. Treatment of your abscess has required an incision to drain the pus. If the abscess pocket was large, a gauze packing may have been inserted. This will need to be removed and possibly replaced on your next visit. Antibiotics are not required in the treatment of a simple abscess, unless the infection is spreading into the skin around the wound (known as cellulitis). Healing of the wound will take about one to two weeks depending on the size of the abscess. Healthy tissue will grow from the bottom and sides of the opening until it seals over. Home Care: The wound may drain for the first two days. Cover the wound with a clean dry dressing. If the dressing becomes soaked with blood or pus, change it. If a gauze packing was placed inside the abscess cavity, you may be advised to remove it yourself. You may do this in the shower. Once the packing is removed, you should wash the area in the shower or bath 3 to 4 times a day, until the skin opening has closed. If you were prescribed antibiotics, take them as directed until they are all gone. You may use acetaminophen (Tylenol) or ibuprofen (Motrin, Advil) to control pain, unless another pain medicine was prescribed. [ NOTE: If you have liver disease or ever had a stomach ulcer, talk with your doctor before using these medicines.] Follow Up with your doctor as advised by our staff. If a gauze packing was inserted in your wound, it should be removed in 1-2 days. Check your wound every day for the signs of worsening infection listed below. Get Prompt Medical Attention if any of the following occur: Increasing redness or swelling Red streaks in the skin leading away from the wound Increasing local pain or swelling Continued pus draining from the wound two days after treatment Fever of 100.4F (38C) or higher, or as directed by your healthcare provider Hydrocodone Bitartrate, Acetaminophen Oral tablet What is this medicine? ACETAMINOPHEN; HYDROCODONE (a set a KATARINA larry fen; tatiana droe KOE done) is a pain reliever. It is used to treat mild to moderate pain. How should I use this medicine? Take this medicine by mouth. Swallow it with a full glass of water. Follow the directions on the prescription label. If the medicine upsets your stomach, take the medicine with food or milk. Do not take more than you are told to take. Talk to your director data processing regarding the use of this medicine in children. This medicine is not approved for use in children. What side effects may I notice from receiving this medicine? Side effects that you should report to your doctor or health post acute care nurse practitioner as soon as possible: allergic reactions like skin rash, itching or hives, swelling of the face, lips, or tongue breathing problems confusion feeling faint or lightheaded, falls stomach pain yellowing of the eyes or skin Side effects that usually do not require medical attention (report to your doctor or health post acute care nurse practitioner if they continue or are bothersome): nausea, vomiting stomach upset What may interact with this medicine? alcohol antihistamines isoniazid medicines for depression, anxiety, or psychotic disturbances medicines for sleep muscle relaxants naltrexone narcotic medicines (opiates) for pain phenobarbital ritonavir tramadol What if I miss a dose? If you miss a dose, take it as soon as you can. If it is almost time for your next dose, take only that dose. Do not take double or extra doses. Where should I keep my medicine? Keep out of the reach of children. This medicine can be abused. Keep your medicine in a safe place to protect it from theft. Do not share this medicine with anyone. Selling or giving away this medicine is dangerous and against the law. Store at room temperature between 15 and 30 degrees C (59 and 86 degrees F). Protect from light. Keep container tightly closed. Throw away any unused medicine after the expiration date. Discard unused medicine and used packaging carefully. Pets and children can be harmed if they find used or lost packages. What should I tell my health care provider before I take this medicine? They need to know if you have any of these conditions: brain tumor Crohn's disease, inflammatory bowel disease, or ulcerative colitis drink more than 3 alcohol-containing drinks per day drug abuse or addiction head injury heart or circulation problems kidney disease or problems going to the bathroom liver disease lung disease, asthma, or breathing problems an unusual or allergic reaction to acetaminophen, hydrocodone, other opioid analgesics, other medicines, foods, dyes, or preservatives or trying to get breast-feeding What should I watch for while using this medicine? Tell your doctor or health post acute care nurse practitioner if your pain does not go away, if it gets worse, or if you have new or a different type of pain. You may develop tolerance to the medicine. Tolerance means that you will need a higher dose of the medicine for pain relief. Tolerance is normal and is expected if you take the medicine for a long time. Do not suddenly stop taking your medicine because you may develop a severe reaction. Your body becomes used to the medicine. This does NOT mean you are addicted. Addiction is a behavior related to getting and using a drug for a non-medical reason. If you have pain, you have a medical reason to take pain medicine. Your doctor will tell you how much medicine to take. If your doctor wants you to stop the medicine, the dose will be slowly lowered over time to avoid any side effects. You may get drowsy or dizzy when you first start taking the medicine or change doses. Do not drive, use machinery, or do anything that may be dangerous until you know how the medicine affects you. Stand or sit up slowly. There are different types of narcotic medicines (opiates) for pain. If you take more than one type at the same time, you may have more side effects. Give your health care provider a list of all medicines you use. Your doctor will tell you how much medicine to take. Do not take more medicine than directed. Call emergency for help if you have problems breathing. The medicine will cause constipation. Try to have a bowel movement at least every 2 to 3 days. If you do not have a bowel movement for 3 days, call your doctor or health post acute care nurse practitioner. Too much acetaminophen can be very dangerous. Do not take Tylenol (acetaminophen) or medicines that contain acetaminophen with this medicine. Many non-prescription medicines contain acetaminophen. Always read the labels carefully. Sulfamethoxazole, Trimethoprim Oral tablet What is this medicine? SULFAMETHOXAZOLE; TRIMETHOPRIM or SMX-TMP (suhl fuh meth OK karla zohl; trye METH oh prim) is a combination of a sulfonamide antibiotic and a second antibiotic, trimethoprim. It is used to treat or prevent certain kinds of bacterial infections. It will not work for colds, flu, or other viral infections. How should I use this medicine? Take this medicine by mouth with a full glass of water. Follow the directions on the prescription label. Take your medicine at regular intervals. Do not take it more often than directed. Do not skip doses or stop your medicine early. Talk to your director data processing regarding the use of this medicine in children. Special care may be needed. This medicine has been used in children as young as 2 months of age. What side effects may I notice from receiving this medicine? Side effects that you should report to your doctor or health post acute care nurse practitioner as soon as possible: allergic reactions like skin rash or hives, swelling of the face, lips, or tongue breathing problems fever or chills, sore throat irregular heartbeat, chest pain joint or muscle pain pain or difficulty passing urine red pinpoint spots on skin redness, blistering, peeling or loosening of the skin, including inside the mouth unusual bleeding or bruising unusually weak or tired yellowing of the eyes or skin Side effects that usually do not require medical attention (report to your doctor or health post acute care nurse practitioner if they continue or are bothersome): diarrhea dizziness headache loss of appetite nausea, vomiting nervousness What may interact with this medicine? Do not take this medicine with any of the following medications: aminobenzoate potassium dofetilide metronidazole This medicine may also interact with the following medications: ERIN inhibitors like benazepril, enalapril, lisinopril, and ramipril cyclosporine digoxin diuretics indomethacin medicines for diabetes methenamine methotrexate phenytoin potassium supplements pyrimethamine sulfinpyrazone tricyclic antidepressants warfarin What if I miss a dose? If you miss a dose, take it as soon as you can. If it is almost time for your next dose, take only that dose. Do not take double or extra doses. Where should I keep my medicine? Keep out of the reach of children. Store at room temperature between 20 to 25 degrees C (68 to 77 degrees F). Protect from light. Throw away any unused medicine after the expiration date. What should I tell my health care provider before I take this medicine? They need to know if you have any of these conditions: anemia asthma being treated with anticonvulsants if you frequently drink alcohol containing drinks kidney disease liver disease low level of folic acid or [id number] dehydrogenase poor nutrition or malabsorption porphyria severe allergies thyroid disorder an unusual or allergic reaction to sulfamethoxazole, trimethoprim, sulfa drugs, other medicines, foods, dyes, or preservatives or trying to get breast-feeding What should I watch for while using this medicine? Tell your doctor or health post acute care nurse practitioner if your symptoms do not improve. Drink several glasses of water a day to reduce the risk of kidney problems. Do not treat diarrhea with over the counter products. Contact your doctor if you have diarrhea that lasts more than 2 days or if it is severe and watery. This medicine can make you more sensitive to the sun. Keep out of the sun. If you cannot avoid being in the sun, wear protective clothing and use a sunscreen. Do not use sun lamps or tanning beds/booths. You have been given the following additional information: Abscess, Incision And Drainage Hydrocodone Bitartrate, Acetaminophen Oral tablet Sulfamethoxazole, Trimethoprim Oral tablet No driving or operating machinery while taking medication. Sedative medication was given during your visit. (Electronically signed by Khris Stallings MD 08/28/2016 22:29)
--- NOTE | 2016-08-28 22:30 | ED MAR SUMMARY ---
..... Medication Administration Record [facility] [address] [place] [address] Patient: MEGHAN WORTHY Visit ID: [id number] 26y, M Weight: 90.7 kg Height/Length: 69 in BMI: 29.5 ALLERGIES: No Known Drug Allergy Given 13:35 08/26/2016 Colleen Fenton, RYasmineN. Medication Administered: DILAUDID [IM] (HYDROMORPHONE HCL PF), Dose: 2 mg IM. Medication Ordered: Dilaudid IM 2 mg (HIGH ALERT MEDICATION, NOW). Given 13:36 08/26/2016 Colleen Fenton, R.N. Medication Administered: ZOFRAN ODT [PO] (ONDANSETRON), Dose: 4 mg Oral Disintegrating Tablets PO. Medication Ordered: Zofran ODT PO 4 mg (NOW).
== END 2016-08-26 13:55 | disposition home or self-care (01) ==
LOC: ED SRH 09:45
DX: L05.01 Pilonidal cyst with abscess (principal); F17.210 Nicotine dependence, cigarettes, uncomplicated; K21.9 Gastro-esophageal reflux disease without esophagitis
CPT/HCPCS: 90131; 90309; 90470

== ENCOUNTER 2016-08-28 13:37 | Emergency (ER) | payer SELFPAY ==
--- NOTE | 2016-08-28 15:30 | ED NURSING NOTES ---
Clinical Report - Nurses [facility] [place] [address] 08/28/2016 13:38 Patient: MEGHAN WORTHY TRIAGE Acuity: LEVEL 4. Chief Complaint: RECHECK OF WOUND. Alert. No acute distress. SEPSIS SCREEN: Sepsis Screen. Negative (no infection suspected/documented). KALPANA COMA SCORE: Grimes Coma Scale: 15- eyes open spontaneously (4); best verbal response- oriented x 4 (5); best motor response- obeys commands (6). --14:44 Isabel Jean-Baptiste R.N. 14:38 08/28/16. BP: 137/83. HR: 89. RR: 16. O2 saturation: 98% on room air. Temp: 97.5 F (oral). Pain level now: 0/10. --14:44 Isabel Jean-Baptiste R.N. Weight: 86.1 kg stated. Height/Length: 71 inches Per Patient. BMI: 26.5. --14:41 Isabel Jean-Baptiste R.N. Medications PriLOSEC Oral. --14:39 Isabel Jean-Baptiste R.N. Vicodin Oral (from previous ED visit). --14:39 Isabel Jean-Baptiste R.N. Bactrim Oral. --14:43 Isabel Jean-Baptiste R.N. Medication/allergy information source: the patient. --14:44 Isabel Jean-Baptiste R.N. Allergies No Known Drug Allergy. --14:39 Isabel Jean-Baptiste R.N. History Arrived by private vehicle. Historian: patient. Accompanied by mother. Location: lower back. Previous treatment: Previously seen in this ED two days ago. Incision and drainage of abscess performed. ( Pt reports he is here for a recheck from [address] Stallings I&D a cyst..). PAST MEDICAL HX: Immunizations: up-to-date. SOCIAL HX: Current every day heavy tobacco smoker (cigarette)- less than 1 pack per day. No alcohol use or drug use. FALL RISK ASSESSMENT: Fall risk assessment completed. No fall risk identified. NUTRITIONAL RISK ASSESSMENT: The nutritional risk assessment revealed no deficiencies. FUNCTIONAL ASSESSMENT: Functional assessment: no impairments noted. LEARNING NEEDS ASSESSMENT: The learning needs assessment revealed no barriers. SKIN INTEGRITY ASSESSMENT: Skin integrity risk assessment completed. No skin integrity risk identified. --14:44 Isabel Jean-Baptiste R.N. PROBLEMS: Cyst. Abscess. Contusion. Gastroesophageal Reflux Disease. --14:40 Isabel Jean-Baptiste R.N. Assessment GENERAL / NEURO / PSYCH: Alert. Oriented X 4. Appears in no acute distress. Patient appears calm and cooperative. RESPIRATORY: Respirations not labored. CVS: Capillary refill less than 2 seconds. GI / : Abdomen nontender. SKIN: Mucous membranes are pink. Skin is warm and dry. --14:44 Isabel Jean-Baptiste R.N. Interventions ID band on patient. To treatment room. --14:44 Isabel Jean-Baptiste R.N. PHYSICAL ASSESSMENT 14:45 08/28/16. Ambulatory to room. GENERAL / NEURO / PSYCH: Alert. Oriented X 4. Appears in no acute distress. EXTREMITIES: Capillary refill is less than 2 seconds in the extremities. SKIN: Skin is warm and dry. --14:45 Isabel Jean-Baptiste R.N. NURSING PROGRESS NOTES 14:45 08/28/16. Patient gowned. Two patient identifiers checked. Call light placed in reach. Patient placed in chair. Brakes of chair on. Patient ready for evaluation- chart flagged and ED physician notified. --14:45 Isabel Jean-Baptiste R.N. 14:55 08/28/2016 Percocet (Oxycodone-Acetaminophen) PO 5/325 mg Tablets 2 tab given. Allergies verified, confirmed 5 rights and sedative warning given to the patient. --15:00 Isabel Jean-Baptiste R.N. DISPOSITION / DISCHARGE 15:25. Condition at departure: unchanged and stable. No learning barriers present. Discharge instructions provided and reviewed with the patient and parent. Reviewed medication(s) (sitz bath, percocet). Patient and parent verbalized understanding. Written instructions provided in [place]. The patient was discharged home and accompanied by parent. He left the Emergency Department ambulatory and via private vehicle. Parent driving. --16:02 Gabbi Duffy R.N. 15:25 08/28/16. BP: deferred. HR: deferred. RR: deferred. O2 saturation: deferred. Temp: deferred. Pain level now deferred. --16:02 Gabbi Duffy R.N. Locked/Released at 08/28/2016 16:02 by Gabbi Duffy R.N.
--- NOTE | 2016-08-28 15:30 | ED ORDER SUMMARY ---
..... Patient: MEGHAN WORTHY OrderSheet [facility] VisitID: [id number] [address] [place] [address] 26y, M Registration Date/Time: 08/28/2016 ORDER SHEET Weight: 86.1 kg (stated) Allergies: No Known Drug Allergy GENERAL ORDERS: MEDICATION ORDERS: Percocet PO 2 tabs (HIGH ALERT MEDICATION, NOW) (14:50 08/28/2016 Ryan Whalen) (Ack 14:54 MWinterer R.N.) (15:00 MWinterer R.N.) IV FLUIDS: ORDER SHEET NOTES: [Electronically signed by Gabbi Duffy R.N. (16:02 08/28/2016)] [Electronically signed by Wade Cooper Dr. (16:45 08/31/2016)] [Electronically locked/signed by Gabbi Duffy R.N. (16:02 08/28/2016)]
--- NOTE | 2016-08-28 15:30 | ED CLINICAL REPORT ---
Clinical Report - Physicians/Mid Levels [facility] [address] [place] [address] 08/28/2016 13:38 Patient: MEGHAN WORTHY Arrived- By private vehicle. Historian- patient. HISTORY OF PRESENT ILLNESS Chief Complaint: (pilonidal cystwound check). This started about a week ago and is still present and worsening. It was gradual in onset and has been constant but is not gone now. It is described as painful. It has been located on the buttocks. A cause has been identified (pilonidal cyst). (reports being on Bactrim. Noproblems with medication. Patient has been taking it as prescribed. Patient reports of fever nausea.). Similar symptoms previously: None. Recent medical care: Not recently seen/assessed. REVIEW OF SYSTEMS No fever, chills, difficulty breathing, nausea or vomiting. All systems otherwise negative, except as recorded above. SOCIAL HISTORY Smoker- current status unknown. No alcohol use or drug use. FAMILY HISTORY History of atopic allergy in first-degree relative (mother) (pilonidal cysts). ADDITIONAL NOTES The nursing notes have been reviewed. PHYSICAL EXAM Vital Signs: 08/28/2016 14:38 BP: 137/83. HR: 89. RR: 16. O2 saturation: 98%. Temp: 97.5 F. Pain level now: 0/10. Blood pressure normal. Oxygen saturation normal. Appearance: Alert. Oriented X3. No acute distress. Eyes: Pupils equal, round and reactive to light. Conjunctivae and eyelids normal. ENT: Ears normal. Nose normal. CVS: Normal heart rate and rhythm. Heart sounds normal. Respiratory: No respiratory distress. Breath sounds normal. Chest nontender. Abdomen: Nontender. No organomegaly. Skin: (pilonidal cyst with packing placed. No active bleeding. There is a small amount of white purulent material noted on the packing. No surrounding erythema. No crepitus. No bony abnormalities. Packing was removed. Wound was irrigated. Unable to repack wound secondary patient discomfort.). PROGRESS AND PROCEDURES Course of Care: the patient is a pleasant 26-year-old male presenting for evaluation of wound check for a pilonidal cyst that was drained recently. Patient was initially seen by me earlier in the week for possible traumatic injury. Patient eventually return to the hospital with evidence of pilonidal cyst. The patient had the wound packed and drained in the emergency department. Patient is here for wound check. No concerning symptoms for worsening type of infection. Patient has been taking antibiotics as prescribed. Did attempt to change the patient's packing while here in the emergency department however patient did not tolerate the procedure. The wound was only irrigated out. A fresh dressing was placed. Because the wound appears to be healing well, do not feel patient needs further intervention at this time. Patient recommended to continue his antibiotics. I discussed the patient workup, diagnosis, home care, follow-up, and return precautions. All questions answered. The patient expressed understanding of these instructions and was agreeable to them. I did express my concern for likely recurrence of the wound if it is not packed. Patient understands that packing would reduce his risk of infection however because of the severe discomfort, patient states that he wouldrather take his chances. Offered other types of help for the discomfort including local anesthetic as well as systemic pain relief. Patient currently is declining these offers. Expressed my deep concern for his health and safety. Patient states he will return if anything worsens. Patient can be monitored by his mother. Patient is otherwise a good outpatient candidate. Do not feel patient needs to be admitted to the hospital or require further emergency department workup/evaluation. Disposition: Discharged. Condition: good. CLINICAL IMPRESSION 08/28/2016 14:38 BP: 137/83. HR: 89. RR: 16. O2 saturation: 98%. Temp: 97.5 F. Pain level now: 0/10. Blood pressure normal. Oxygen saturation normal. wound recheck pilonidal abscess. INSTRUCTIONS (Continue taking your antibiotics as recommended). Warnings: GENERAL WARNINGS: Return or contact your physician immediately if your condition worsens or changes unexpectedly, if not improving as expected, or if other problems arise. Specifically return if pain, vomiting, bleeding, breathing difficulty or fever. increasing pain, any redness, nausea, or other concerns. Your Current Medications: CONTINUE TAKING THE FOLLOWING MEDICATIONS: Bactrim Oral. PriLOSEC Oral. Vicodin Oral : from previous ED visit. Prescription Medications: Percocet 5 mg/325 mg: take 1-2 tablets orally every 6 hours as needed for pain. Dispense twenty (20). No refill. Substitution is permissible. Sitz baths. Use once a day as needed for wound care. Follow package instructions. Disp enough for one week. Follow-up: Return to the emergency department as needed. Follow up with your doctor in one week. Reason for referral: recheck today's concerns. Summary of care provided to patient via paper. Screening today revealed the patient's blood pressure to be in the normal range. The patient should follow up with a primary care provider for blood pressure management. Understanding of the discharge instructions verbalized by patient. (Electronically signed by Wade Cooper Dr. 08/31/2016 16:45)
--- NOTE | 2016-08-28 15:30 | ED ORDER SUMMARY ---
..... Patient: MEGHAN WORTHY OrderSheet [facility] VisitID: [id number] [address] [place] [address] 26y, M Registration Date/Time: 08/28/2016 ORDER SHEET Weight: 86.1 kg (stated) Allergies: No Known Drug Allergy GENERAL ORDERS: MEDICATION ORDERS: Percocet PO 2 tabs (HIGH ALERT MEDICATION, NOW) (14:50 08/28/2016 Ryan Whalen) (Ack 14:54 MWinterer R.N.) (15:00 MWinterer R.N.) IV FLUIDS: ORDER SHEET NOTES: [Electronically signed by Gabbi Duffy R.N. (16:02 08/28/2016)] [Electronically signed by Wade Cooper Dr. (16:45 08/31/2016)] [Electronically locked/signed by Gabbi Duffy R.N. (16:02 08/28/2016)]
--- NOTE | 2016-08-31 16:45 | ED MED RECONCILIATION SUMMARY ---
Patient: MEGHAN WORTHY Medication Reconciliation Report [facility] VisitID: [id number] [address] [place] [address] 26y, M Registration Date/Time: 08/28/2016 Weight: 86.1 kg Height/Length: 71 in. BMI: 26.5 ALLERGIES: No Known Drug Allergy The patient's Home Medications are listed below: CONTINUE TAKING THE FOLLOWING MEDICATIONS: Bactrim Oral PriLOSEC Oral Vicodin Oral, from previous ED visit The source(s) of the original Home Medication information: patient The following Medications were given to the patient in the Emergency Department: Percocet [PO] PO 2 tab, administered: 08/28/2016 2:55:00 PM The following Medications were prescribed to the patient: Sitz baths. Use once a day as needed for wound care. Follow package instructions. Disp enough for one week. -- Wade Cooper Dr. Percocet 5 mg/325 mg: take 1-2 tablets orally every 6 hours as needed for pain. Dispense twenty (20). No refill. Substitution is permissible. -- Wade Cooper Dr.
--- NOTE | 2016-08-31 16:45 | ED MAR SUMMARY ---
..... Medication Administration Record [facility] [address] [place] [address] Patient: MEGHAN WORTHY Visit ID: [id number] 26y, M Weight: 86.1 kg Height/Length: 71 in BMI: 26.5 ALLERGIES: No Known Drug Allergy Given 14:55 08/28/2016 Isabel Jean-Baptiste R.N. Medication Administered: PERCOCET [PO] (OXYCODONE-ACETAMINOPHEN), Dose: 2 tab 5/325 mg Tablets PO. Medication Ordered: Percocet PO 2 tabs (HIGH ALERT MEDICATION, NOW).
--- NOTE | 2016-08-31 16:45 | ED DISCHARGE INSTRUCTIONS ---
Patient: MEGHAN WORTHY General Instructions [facility] VisitID: [id number] [place] [address] 26y, M Registration Date/Time: 08/28/2016 08/28/2016 14:38 BP: 137/83. HR: 89. RR: 16. O2 saturation: 98%. Temp: 97.5 F. Pain level now: 0/10. Blood pressure normal. Oxygen saturation normal. wound recheck pilonidal abscess. INSTRUCTIONS (Continue taking your antibiotics as recommended). Warnings: GENERAL WARNINGS: Return or contact your physician immediately if your condition worsens or changes unexpectedly, if not improving as expected, or if other problems arise. Specifically return if pain, vomiting, bleeding, breathing difficulty or fever. increasing pain, any redness, nausea, or other concerns. Your Current Medications: CONTINUE TAKING THE FOLLOWING MEDICATIONS: Bactrim Oral. PriLOSEC Oral. Vicodin Oral : from previous ED visit. Prescription Medications: Percocet 5 mg/325 mg: take 1-2 tablets orally every 6 hours as needed for pain. Dispense twenty (20). No refill. Substitution is permissible. Sitz baths. Use once a day as needed for wound care. Follow package instructions. Disp enough for one week. Follow-up: Return to the emergency department as needed. Follow up with your doctor in one week. Reason for referral: recheck today's concerns. Summary of care provided to patient via paper. Screening today revealed the patient's blood pressure to be in the normal range. The patient should follow up with a primary care provider for blood pressure management. Understanding of the discharge instructions verbalized by patient. ADDITIONAL INFORMATION Oxycodone Hydrochloride, Acetaminophen Oral tablet What is this medicine? ACETAMINOPHEN; OXYCODONE (a set a KATARINA larry fen; ox i KOE done) is a pain reliever. It is used to treat mild to moderate pain. How should I use this medicine? Take this medicine by mouth with a full glass of water. Follow the directions on the prescription label. Take your medicine at regular intervals. Do not take your medicine more often than directed. Talk to your drawing press operator regarding the use of this medicine in children. Special care may be needed. Patients over 65 years old may have a stronger reaction and need a smaller dose. What side effects may I notice from receiving this medicine? Side effects that you should report to your doctor or health child care provider as soon as possible: allergic reactions like skin rash, itching or hives, swelling of the face, lips, or tongue breathing difficulties, wheezing confusion light headedness or fainting spells severe stomach pain yellowing of the skin or the whites of the eyes Side effects that usually do not require medical attention (report to your doctor or health child care provider if they continue or are bothersome): dizziness drowsiness nausea vomiting What may interact with this medicine? alcohol antihistamines barbiturates like amobarbital, butalbital, butabarbital, methohexital, pentobarbital, phenobarbital, thiopental, and secobarbital benztropine drugs for bladder problems like solifenacin, trospium, oxybutynin, tolterodine, hyoscyamine, and methscopolamine drugs for breathing problems like ipratropium and tiotropium drugs for certain stomach or intestine problems like propantheline, homatropine methylbromide, glycopyrrolate, atropine, belladonna, and dicyclomine general anesthetics like etomidate, ketamine, nitrous oxide, propofol, desflurane, enflurane, halothane, isoflurane, and sevoflurane medicines for depression, anxiety, or psychotic disturbances medicines for sleep muscle relaxants naltrexone narcotic medicines (opiates) for pain phenothiazines like perphenazine, thioridazine, chlorpromazine, mesoridazine, fluphenazine, prochlorperazine, promazine, and trifluoperazine scopolamine tramadol trihexyphenidyl What if I miss a dose? If you miss a dose, take it as soon as you can. If it is almost time for your next dose, take only that dose. Do not take double or extra doses. Where should I keep my medicine? Keep out of the reach of children. This medicine can be abused. Keep your medicine in a safe place to protect it from theft. Do not share this medicine with anyone. Selling or giving away this medicine is dangerous and against the law. Store at room temperature between 20 and 25 degrees C (68 and 77 degrees F). Keep container tightly closed. Protect from light. This medicine may cause accidental overdose and if it is taken by other adults, children, or pets. Flush any unused medicine down the toilet to reduce the chance of harm. Do not use the medicine after the expiration date. What should I tell my health care provider before I take this medicine? They need to know if you have any of these conditions: brain tumor Crohn's disease, inflammatory bowel disease, or ulcerative colitis drink more than 3 alcohol containing drinks per day drug abuse or addiction head injury heart or circulation problems kidney disease or problems going to the bathroom liver disease lung disease, asthma, or breathing problems an unusual or allergic reaction to acetaminophen, oxycodone, other opioid analgesics, other medicines, foods, dyes, or preservatives or trying to get breast-feeding What should I watch for while using this medicine? Tell your doctor or health child care provider if your pain does not go away, if it gets worse, or if you have new or a different type of pain. You may develop tolerance to the medicine. Tolerance means that you will need a higher dose of the medication for pain relief. Tolerance is normal and is expected if you take this medicine for a long time. Do not suddenly stop taking your medicine because you may develop a severe reaction. Your body becomes used to the medicine. This does NOT mean you are addicted. Addiction is a behavior related to getting and using a drug for a non-medical reason. If you have pain, you have a medical reason to take pain medicine. Your doctor will tell you how much medicine to take. If your doctor wants you to stop the medicine, the dose will be slowly lowered over time to avoid any side effects. You may get drowsy or dizzy. Do not drive, use machinery, or do anything that needs mental alertness until you know how this medicine affects you. Do not stand or sit up quickly, especially if you are an older patient. This reduces the risk of dizzy or fainting spells. Alcohol may interfere with the effect of this medicine. Avoid alcoholic drinks. There are different types of narcotic medicines (opiates) for pain. If you take more than one type at the same time, you may have more side effects. Give your health care provider a list of all medicines you use. Your doctor will tell you how much medicine to take. Do not take more medicine than directed. Call emergency for help if you have problems breathing. The medicine will cause constipation. Try to have a bowel movement at least every 2 to 3 days. If you do not have a bowel movement for 3 days, call your doctor or health child care provider. Do not take Tylenol (acetaminophen) or medicines that have acetaminophen with this medicine. Too much acetaminophen can be very dangerous. Many nonprescription medicines contain acetaminophen. Always read the labels carefully to avoid taking more acetaminophen. You have been given the following additional information: Oxycodone Hydrochloride, Acetaminophen Oral tablet (Electronically signed by Wade Cooper Dr. 08/31/2016 16:45)
--- NOTE | 2016-08-31 16:45 | ED MED RECONCILIATION SUMMARY ---
Patient: MEGHAN WORTHY Medication Reconciliation Report [facility] VisitID: [id number] [address] [place] [address] 26y, M Registration Date/Time: 08/28/2016 Weight: 86.1 kg Height/Length: 71 in. BMI: 26.5 ALLERGIES: No Known Drug Allergy The patient's Home Medications are listed below: CONTINUE TAKING THE FOLLOWING MEDICATIONS: Bactrim Oral PriLOSEC Oral Vicodin Oral, from previous ED visit The source(s) of the original Home Medication information: patient The following Medications were given to the patient in the Emergency Department: Percocet [PO] PO 2 tab, administered: 08/28/2016 2:55:00 PM The following Medications were prescribed to the patient: Sitz baths. Use once a day as needed for wound care. Follow package instructions. Disp enough for one week. -- Wade Cooper Dr. Percocet 5 mg/325 mg: take 1-2 tablets orally every 6 hours as needed for pain. Dispense twenty (20). No refill. Substitution is permissible. -- Wade Cooper Dr.
--- NOTE | 2016-08-31 16:45 | ED MAR SUMMARY ---
..... Medication Administration Record [facility] [address] [place] [address] Patient: MEGHAN WORTHY Visit ID: [id number] 26y, M Weight: 86.1 kg Height/Length: 71 in BMI: 26.5 ALLERGIES: No Known Drug Allergy Given 14:55 08/28/2016 Isabel Jean-Baptiste R.N. Medication Administered: PERCOCET [PO] (OXYCODONE-ACETAMINOPHEN), Dose: 2 tab 5/325 mg Tablets PO. Medication Ordered: Percocet PO 2 tabs (HIGH ALERT MEDICATION, NOW).
--- NOTE | 2016-08-31 16:45 | ED DISCHARGE INSTRUCTIONS ---
Patient: MEGHAN WORTHY General Instructions [facility] VisitID: [id number] [place] [address] 26y, M Registration Date/Time: 08/28/2016 08/28/2016 14:38 BP: 137/83. HR: 89. RR: 16. O2 saturation: 98%. Temp: 97.5 F. Pain level now: 0/10. Blood pressure normal. Oxygen saturation normal. wound recheck pilonidal abscess. INSTRUCTIONS (Continue taking your antibiotics as recommended). Warnings: GENERAL WARNINGS: Return or contact your physician immediately if your condition worsens or changes unexpectedly, if not improving as expected, or if other problems arise. Specifically return if pain, vomiting, bleeding, breathing difficulty or fever. increasing pain, any redness, nausea, or other concerns. Your Current Medications: CONTINUE TAKING THE FOLLOWING MEDICATIONS: Bactrim Oral. PriLOSEC Oral. Vicodin Oral : from previous ED visit. Prescription Medications: Percocet 5 mg/325 mg: take 1-2 tablets orally every 6 hours as needed for pain. Dispense twenty (20). No refill. Substitution is permissible. Sitz baths. Use once a day as needed for wound care. Follow package instructions. Disp enough for one week. Follow-up: Return to the emergency department as needed. Follow up with your doctor in one week. Reason for referral: recheck today's concerns. Summary of care provided to patient via paper. Screening today revealed the patient's blood pressure to be in the normal range. The patient should follow up with a primary care provider for blood pressure management. Understanding of the discharge instructions verbalized by patient. ADDITIONAL INFORMATION Oxycodone Hydrochloride, Acetaminophen Oral tablet What is this medicine? ACETAMINOPHEN; OXYCODONE (a set a KATARINA larry fen; ox i KOE done) is a pain reliever. It is used to treat mild to moderate pain. How should I use this medicine? Take this medicine by mouth with a full glass of water. Follow the directions on the prescription label. Take your medicine at regular intervals. Do not take your medicine more often than directed. Talk to your phys assistant regarding the use of this medicine in children. Special care may be needed. Patients over 65 years old may have a stronger reaction and need a smaller dose. What side effects may I notice from receiving this medicine? Side effects that you should report to your doctor or health manager of care as soon as possible: allergic reactions like skin rash, itching or hives, swelling of the face, lips, or tongue breathing difficulties, wheezing confusion light headedness or fainting spells severe stomach pain yellowing of the skin or the whites of the eyes Side effects that usually do not require medical attention (report to your doctor or health manager of care if they continue or are bothersome): dizziness drowsiness nausea vomiting What may interact with this medicine? alcohol antihistamines barbiturates like amobarbital, butalbital, butabarbital, methohexital, pentobarbital, phenobarbital, thiopental, and secobarbital benztropine drugs for bladder problems like solifenacin, trospium, oxybutynin, tolterodine, hyoscyamine, and methscopolamine drugs for breathing problems like ipratropium and tiotropium drugs for certain stomach or intestine problems like propantheline, homatropine methylbromide, glycopyrrolate, atropine, belladonna, and dicyclomine general anesthetics like etomidate, ketamine, nitrous oxide, propofol, desflurane, enflurane, halothane, isoflurane, and sevoflurane medicines for depression, anxiety, or psychotic disturbances medicines for sleep muscle relaxants naltrexone narcotic medicines (opiates) for pain phenothiazines like perphenazine, thioridazine, chlorpromazine, mesoridazine, fluphenazine, prochlorperazine, promazine, and trifluoperazine scopolamine tramadol trihexyphenidyl What if I miss a dose? If you miss a dose, take it as soon as you can. If it is almost time for your next dose, take only that dose. Do not take double or extra doses. Where should I keep my medicine? Keep out of the reach of children. This medicine can be abused. Keep your medicine in a safe place to protect it from theft. Do not share this medicine with anyone. Selling or giving away this medicine is dangerous and against the law. Store at room temperature between 20 and 25 degrees C (68 and 77 degrees F). Keep container tightly closed. Protect from light. This medicine may cause accidental overdose and if it is taken by other adults, children, or pets. Flush any unused medicine down the toilet to reduce the chance of harm. Do not use the medicine after the expiration date. What should I tell my health care provider before I take this medicine? They need to know if you have any of these conditions: brain tumor Crohn's disease, inflammatory bowel disease, or ulcerative colitis drink more than 3 alcohol containing drinks per day drug abuse or addiction head injury heart or circulation problems kidney disease or problems going to the bathroom liver disease lung disease, asthma, or breathing problems an unusual or allergic reaction to acetaminophen, oxycodone, other opioid analgesics, other medicines, foods, dyes, or preservatives or trying to get breast-feeding What should I watch for while using this medicine? Tell your doctor or health manager of care if your pain does not go away, if it gets worse, or if you have new or a different type of pain. You may develop tolerance to the medicine. Tolerance means that you will need a higher dose of the medication for pain relief. Tolerance is normal and is expected if you take this medicine for a long time. Do not suddenly stop taking your medicine because you may develop a severe reaction. Your body becomes used to the medicine. This does NOT mean you are addicted. Addiction is a behavior related to getting and using a drug for a non-medical reason. If you have pain, you have a medical reason to take pain medicine. Your doctor will tell you how much medicine to take. If your doctor wants you to stop the medicine, the dose will be slowly lowered over time to avoid any side effects. You may get drowsy or dizzy. Do not drive, use machinery, or do anything that needs mental alertness until you know how this medicine affects you. Do not stand or sit up quickly, especially if you are an older patient. This reduces the risk of dizzy or fainting spells. Alcohol may interfere with the effect of this medicine. Avoid alcoholic drinks. There are different types of narcotic medicines (opiates) for pain. If you take more than one type at the same time, you may have more side effects. Give your health care provider a list of all medicines you use. Your doctor will tell you how much medicine to take. Do not take more medicine than directed. Call emergency for help if you have problems breathing. The medicine will cause constipation. Try to have a bowel movement at least every 2 to 3 days. If you do not have a bowel movement for 3 days, call your doctor or health manager of care. Do not take Tylenol (acetaminophen) or medicines that have acetaminophen with this medicine. Too much acetaminophen can be very dangerous. Many nonprescription medicines contain acetaminophen. Always read the labels carefully to avoid taking more acetaminophen. You have been given the following additional information: Oxycodone Hydrochloride, Acetaminophen Oral tablet (Electronically signed by Wade Cooper Dr. 08/31/2016 16:45)
== END 2016-08-28 15:25 | disposition home or self-care (01) ==
LOC: ED SRH 13:37
DX: L05.01 Pilonidal cyst with abscess (principal); Z48.00 Encounter for change or removal of nonsurgical wound dressing